=== PATIENT | female | born 1945 | race Caucasian/White ===

== ENCOUNTER 2016-06-19 17:57 | Emergency (ER) | payer OTHER ==
--- NOTE | 2016-06-19 21:12 | ED ORDER SUMMARY ---
..... Patient: KIANA BURT OrderSheet [facility] VisitID: [id number] [address] [place] [place] [address] 71y, F Registration Date/Time: 06/19/2016 ORDER SHEET Weight: 89.3 kg (stated) Allergies: No Known Drug Allergy GENERAL ORDERS: MEDICATION ORDERS: Albuterol Neb w Atrovent 1 unit dose (NOW) (20:17 06/19/2016 Nikki A.R.N.P.) (20:59 Margaret R.N.) IV FLUIDS: ORDER SHEET NOTES: [Electronically signed by Apoorva Carson R.N. (21:22 06/19/2016)] [Electronically signed by Yanelis ReedR.N.PVeronica (21:57 06/19/2016)] [Electronically locked/signed by Apoorva Carson R.N. (21:22 06/19/2016)]
--- NOTE | 2016-06-19 21:12 | ED CLINICAL REPORT ---
Clinical Report - Physicians/Mid Levels [facility] [address] [place] [address] 06/19/2016 17:57 Patient: KIANA BURT Time Seen: 19:50; initial patient contact, initial documentation, patient care assumed. Arrived- By private vehicle. Historian- patient and family. HISTORY OF PRESENT ILLNESS Chief Complaint: COUGH. This started about 2 months ago or more and is still present. The illness is described as mild. The patient has had a cough and mild difficulty breathing . The patient has also had wheezing. She has had scant amounts of thin, clear, yellow, white sputum. No chest discomfort or pain, fever, muscle aches or sore throat. No nasal congestion or discharge, sinus pressure, sinus drainage or ear pain. Additional history - No known contact with a sick individual. Similar symptoms previously: None. Recent medical care: The patient was seen recently in the office. ( has been to dr several times for this, and given several different meds, including abx, steroids, inhalers, chest xray done, next appt is 07/03 and if still coughing her dr said he would give her referral to lung dr). REVIEW OF SYSTEMS No headache, vomiting, diarrhea or abdominal pain. All systems otherwise negative, except as recorded above. PAST HISTORY See nurses notes. PROBLEMS: Sinusitis. Bronchospasm. Dyspnea. Wheezing. Hyperlipidemia. Hypercholesterolemia. Hypertension. Bronchitis. Depression. --19:37 Apoorva Carson RPrimitivo. ADDITIONAL SURGERIES: Appendectomy. Foot surgery. Ovarian cyst surgery. Tonsillectomy. --19:37 Apoorva Carson RPrimitivo. SOCIAL HISTORY Never smoker. Not exposed to second-hand smoke at home. No alcohol use or drug use. No recent travel. Is a local resident. FAMILY HISTORY Negative. ADDITIONAL NOTES The nursing notes have been reviewed with agreement regarding the chief complaint, HPI, ROS, PMH and patient medications and allergies. PHYSICAL EXAM Vital Signs: 06/19/2016 19:32 BP: 153/102. HR: 79. RR: 16. O2 saturation: 99%. Temp: 98.2 F. Have been reviewed as abnormal and appear to be correct. Hypertensive. Heart rate normal. Respiratory rate normal. Temperature normal. Oxygen saturation normal. Appearance: Alert. No acute distress. Eyes: Pupils equal, round and reactive to light. Eyes normal inspection. ENT: Ears normal. Nose normal. Pharynx normal. Uvula midline. Neck: Normal inspection. Neck supple. CVS: Normal heart rate and rhythm. Heart sounds normal. Pulses normal. Respiratory: No respiratory distress. Breath sounds abnormal. Inspiratory mild bilateral wheezes posteriorly and in the bases. Abdomen: Soft and nontender. No organomegaly. Back: Normal inspection. Skin: Skin warm and dry. Normal skin color. No rash. Normal skin turgor. Extremities: Extremities exhibit normal ROM. No lower extremity edema. Neuro: Oriented X 3. No motor deficit. No sensory deficit. PROGRESS AND PROCEDURES Course of Care: 2100. resp even and unlabored, B breath sounds CTA. 06/19/2016 20:59 BP: 153/80. HR: 79. RR: 18. O2 saturation: 98%. Vital Signs: have been reviewed as normal and appear to be correct. Patient and family counseled in person regarding the patient's stable condition and diagnosis. 21:11. Differential Diagnosis: Other possible considerations: chronic cough, pneumonia, bronchitis, copd, emphysema, allergies, gerd, lung ca. Above considerations are based on history and physical exam. Differential diagnosis was discussed with patient. Disposition: Discharged home in good and improved condition (21:12). Condition: good and stable. CLINICAL IMPRESSION Acute bronchospasm INSTRUCTIONS Warnings: GENERAL WARNINGS: Return or contact your physician immediately if your condition worsens or changes unexpectedly, if not improving as expected, or if other problems arise. Specifically return if problem worsens. Follow-up: Screening today revealed the patient's blood pressure to be in the hypertensive range. Blood pressure screening was not performed during this visit because blood pressure screening was precluded by clinical urgency. Understanding of the discharge instructions verbalized by patient. Follow-up with: Edenilson Golden MD, Pulmonary Disease, , [address] , [place], [id number] Follow up in about three days even if well. Call for an appointment. Summary of care provided to patient and family. (Electronically signed by Yanelis Reed A.R.N.P. 06/19/2016 21:57)
--- NOTE | 2016-06-19 21:12 | ED NURSING NOTES ---
Clinical Report - Nurses [facility] [address] [place] [address] 06/19/2016 17:57 Patient: KIANA BURT TRIAGE Triage time 19:32. Acuity: LEVEL 4. Chief Complaint: COUGH. Alert. No acute distress. ( Pt. has had an URI for over 2 months. She has been treated multiple times by her PCP with a neb tx and antibiotics. She currently is on an antibiotic but she does not recall which one. She is worried because she is not getting better.). SEPSIS SCREEN: Sepsis Screen. Negative (no infection suspected/documented). LISSET COMA SCORE: Lisset Coma Scale: 15- eyes open spontaneously (4); best verbal response- oriented x 4 (5); best motor response- obeys commands (6). --19:37 Apoorva Carson R.N. 19:32 06/19/16. BP: 153/102. HR: 79. RR: 16. O2 saturation: 99%. Temp: 98.2 F. Pain level now 0/10. --19:37 Apoorva Carson R.N. Weight: 89.3 kg stated. Height/Length: 66 inches Per Patient. BMI: 31.8. --19:34 Apoorva Carson R.N. Medications Aspirin Low Dose Oral. Atrovent HFA Inhalation. CEFPOD. Cefpodoxime Proxetil Oral. Escitalopram Oxalate Oral. Estradiol Oral. Flovent HFA Inhalation. Hydrochlorothiazide Oral. Krill Oil Oral. Losartan Potassium Oral. MedroxyPROGESTERone Acetate Oral. --19:36 Apoorva Carson R.N. Metoprolol Tartrate Oral. Multiple Vitamins Oral. Simvastatin Oral. --19:36 Apoorva Carson R.N. Allergies No Known Drug Allergy. --19:36 Apoorva Carson R.N. History Arrived by private vehicle. Historian: patient. Accompanied by (ficarolina). Primary physician (Dr. Dennison). Onset. (2 months ago. Pt is concerned because she is not getting any better). Treatment LASER MACHINE OPERATOR: (Neb treatment around 1600). PAST MEDICAL HX: Immunizations: status is unknown. SOCIAL HX: Never smoker. No alcohol use or drug use. She has not traveled outside the [place] No infectious disease exposure. ABUSE ASSESSMENT: Abuse assessment: The patient was asked "Do you feel safe in your home?" and "Has anyone hurt you or threatened to hurt you?". No report of abuse. SELF HARM ASSESSMENT: A self harm assessment was performed. The patient answered "no" to the question "Do you have thoughts of harming or killing yourself?" and "Have you recently had thoughts about harming or killing others?". NUTRITIONAL RISK ASSESSMENT: The nutritional risk assessment revealed no deficiencies. FUNCTIONAL ASSESSMENT: Functional assessment: no impairments noted. LEARNING NEEDS ASSESSMENT: The learning needs assessment revealed no barriers. --19:37 Apoorva Carson R.N. PROBLEMS: Sinusitis. Bronchospasm. Dyspnea. Wheezing. Hyperlipidemia. Hypercholesterolemia. Hypertension. Bronchitis. Depression. --19:37 Apoorva Carson R.N. ADDITIONAL SURGERIES: Appendectomy. Foot surgery. Ovarian cyst surgery. Tonsillectomy. --19:37 Apoorva Carson R.N. Interventions ID band on patient. Ambulatory. --19:37 Apoorva Carson R.N. PHYSICAL ASSESSMENT Ambulatory to room. GENERAL / NEURO / PSYCH: Alert. Appears in no acute distress. HEENT: Mucous membranes are pink. RESPIRATORY: Respirations not labored. CVS: Capillary refill less than 2 seconds. SKIN: Skin is warm and dry. --19:37 Apoorva Carson R.N. NURSING PROGRESS NOTES Patient gowned. Head of bed elevated. Two patient identifiers checked. Call light placed in reach. Side rails up x 2. Bed placed in lowest position. Brakes of bed on. Patient ready for evaluation- chart flagged. --19:37 Apoorva Carson R.N. 20:30 06/19/2016 ALBUTEROL NEB W ATROVENT Neb TX 1 unit dose given. Given by the respiratory therapist. Allergies verified and confirmed 5 rights. --20:59 Apoorva Carson R.N. Patient informed about reason for wait. --21:00 Apoorva Carson R.N. 20:59 06/19/16. BP: 153/80. HR: 79. RR: 18. O2 saturation: 98%. --21:00 Apoorva Carson R.N. DISPOSITION / DISCHARGE 21:15. Departure time: 2114. ( 20:59 06/19/16. BP: 153/80. HR: 79. RR: 18. O2 saturation: 98%. --21:00 Apoorva Carson R.N. Pt. states she is feeling a lot better.). No learning barriers present. Discharge instructions provided and reviewed with the patient. Reviewed referral to a roll plugger machine operator for followup. Patient and laser technician verbalized understanding. Written instructions provided in Brazilian. The patient was discharged home and accompanied by laser technician. She left the Emergency Department ambulatory and via private vehicle. Developmental Mathematics Instructor driving. Medication list reviewed and validated. --21:21 Apoorva Carson R.N. 21:15 06/19/16. RR: 18. Additional comments: d/c v/s deferred pt. v/s done at 20:59 and stable. --21:21 Apoorva Carson R.N. Locked/Released at 06/19/2016 21:22 by Apoorva Carson R.N.
--- NOTE | 2016-06-19 21:12 | ED NURSING NOTES ---
Clinical Report - Nurses [facility] [address] [place] [address] 06/19/2016 17:57 Patient: KIANA BURT TRIAGE Triage time 19:32. Acuity: LEVEL 4. Chief Complaint: COUGH. Alert. No acute distress. ( Pt. has had an URI for over 2 months. She has been treated multiple times by her PCP with a neb tx and antibiotics. She currently is on an antibiotic but she does not recall which one. She is worried because she is not getting better.). SEPSIS SCREEN: Sepsis Screen. Negative (no infection suspected/documented). LISSET COMA SCORE: Lisset Coma Scale: 15- eyes open spontaneously (4); best verbal response- oriented x 4 (5); best motor response- obeys commands (6). --19:37 Apoorva Carson R.N. 19:32 06/19/16. BP: 153/102. HR: 79. RR: 16. O2 saturation: 99%. Temp: 98.2 F. Pain level now 0/10. --19:37 Apoorva Carson R.N. Weight: 89.3 kg stated. Height/Length: 66 inches Per Patient. BMI: 31.8. --19:34 Apoorva Carson R.N. Medications Aspirin Low Dose Oral. Atrovent HFA Inhalation. CEFPOD. Cefpodoxime Proxetil Oral. Escitalopram Oxalate Oral. Estradiol Oral. Flovent HFA Inhalation. Hydrochlorothiazide Oral. Krill Oil Oral. Losartan Potassium Oral. MedroxyPROGESTERone Acetate Oral. --19:36 Apoorva Carson R.N. Metoprolol Tartrate Oral. Multiple Vitamins Oral. Simvastatin Oral. --19:36 Apoorva Carson R.N. Allergies No Known Drug Allergy. --19:36 Apoorva Carson R.N. History Arrived by private vehicle. Historian: patient. Accompanied by (ficarolina). Primary physician (Dr. Dennison). Onset. (2 months ago. Pt is concerned because she is not getting any better). Treatment SORT WORKER: (Neb treatment around 1600). PAST MEDICAL HX: Immunizations: status is unknown. SOCIAL HX: Never smoker. No alcohol use or drug use. She has not traveled outside the [place] No infectious disease exposure. ABUSE ASSESSMENT: Abuse assessment: The patient was asked "Do you feel safe in your home?" and "Has anyone hurt you or threatened to hurt you?". No report of abuse. SELF HARM ASSESSMENT: A self harm assessment was performed. The patient answered "no" to the question "Do you have thoughts of harming or killing yourself?" and "Have you recently had thoughts about harming or killing others?". NUTRITIONAL RISK ASSESSMENT: The nutritional risk assessment revealed no deficiencies. FUNCTIONAL ASSESSMENT: Functional assessment: no impairments noted. LEARNING NEEDS ASSESSMENT: The learning needs assessment revealed no barriers. --19:37 Apoorva Carson R.N. PROBLEMS: Sinusitis. Bronchospasm. Dyspnea. Wheezing. Hyperlipidemia. Hypercholesterolemia. Hypertension. Bronchitis. Depression. --19:37 Apoorva Carson R.N. ADDITIONAL SURGERIES: Appendectomy. Foot surgery. Ovarian cyst surgery. Tonsillectomy. --19:37 Apoorva Carson R.N. Interventions ID band on patient. Ambulatory. --19:37 Apoorva Carson R.N. PHYSICAL ASSESSMENT Ambulatory to room. GENERAL / NEURO / PSYCH: Alert. Appears in no acute distress. HEENT: Mucous membranes are pink. RESPIRATORY: Respirations not labored. CVS: Capillary refill less than 2 seconds. SKIN: Skin is warm and dry. --19:37 Apoorva Carson R.N. NURSING PROGRESS NOTES Patient gowned. Head of bed elevated. Two patient identifiers checked. Call light placed in reach. Side rails up x 2. Bed placed in lowest position. Brakes of bed on. Patient ready for evaluation- chart flagged. --19:37 Apoorva Carson R.N. 20:30 06/19/2016 ALBUTEROL NEB W ATROVENT Neb TX 1 unit dose given. Given by the respiratory therapist. Allergies verified and confirmed 5 rights. --20:59 Apoorva Carson R.N. Patient informed about reason for wait. --21:00 Apoorva Carson R.N. 20:59 06/19/16. BP: 153/80. HR: 79. RR: 18. O2 saturation: 98%. --21:00 Apoorva Carson R.N. DISPOSITION / DISCHARGE 21:15. Departure time: 2114. ( 20:59 06/19/16. BP: 153/80. HR: 79. RR: 18. O2 saturation: 98%. --21:00 Apoorva Carson R.N. Pt. states she is feeling a lot better.). No learning barriers present. Discharge instructions provided and reviewed with the patient. Reviewed referral to a dining room host/hostess for followup. Patient and disc jockey verbalized understanding. Written instructions provided in Serbian. The patient was discharged home and accompanied by disc jockey. She left the Emergency Department ambulatory and via private vehicle. Bull Rider driving. Medication list reviewed and validated. --21:21 Apoorva Carson R.N. 21:15 06/19/16. RR: 18. Additional comments: d/c v/s deferred pt. v/s done at 20:59 and stable. --21:21 Apoorva Carson R.N. Locked/Released at 06/19/2016 21:22 by Apoorva Carson R.N.
--- NOTE | 2016-06-19 21:12 | ED ORDER SUMMARY ---
..... Patient: KIANA BURT OrderSheet [facility] VisitID: [id number] [address] [place] [address] 71y, F Registration Date/Time: 06/19/2016 ORDER SHEET Weight: 89.3 kg (stated) Allergies: No Known Drug Allergy GENERAL ORDERS: MEDICATION ORDERS: Albuterol Neb w Atrovent 1 unit dose (NOW) (20:17 06/19/2016 Nikki A.R.N.P.) (20:59 Margaret R.N.) IV FLUIDS: ORDER SHEET NOTES: [Electronically signed by Apoorva Carson R.N. (21:22 06/19/2016)] [Electronically signed by Yanelis ReedR.N.PVeronica (21:57 06/19/2016)] [Electronically locked/signed by Apoorva Carson R.N. (21:22 06/19/2016)]
--- NOTE | 2016-06-19 21:12 | ED CLINICAL REPORT ---
Clinical Report - Physicians/Mid Levels [facility] [address] [place] [address] 06/19/2016 17:57 Patient: KIANA BURT Time Seen: 19:50; initial patient contact, initial documentation, patient care assumed. Arrived- By private vehicle. Historian- patient and family. HISTORY OF PRESENT ILLNESS Chief Complaint: COUGH. This started about 2 months ago or more and is still present. The illness is described as mild. The patient has had a cough and mild difficulty breathing . The patient has also had wheezing. She has had scant amounts of thin, clear, yellow, white sputum. No chest discomfort or pain, fever, muscle aches or sore throat. No nasal congestion or discharge, sinus pressure, sinus drainage or ear pain. Additional history - No known contact with a sick individual. Similar symptoms previously: None. Recent medical care: The patient was seen recently in the office. ( has been to dr several times for this, and given several different meds, including abx, steroids, inhalers, chest xray done, next appt is 07/03 and if still coughing her dr said he would give her referral to lung dr). REVIEW OF SYSTEMS No headache, vomiting, diarrhea or abdominal pain. All systems otherwise negative, except as recorded above. PAST HISTORY See nurses notes. PROBLEMS: Sinusitis. Bronchospasm. Dyspnea. Wheezing. Hyperlipidemia. Hypercholesterolemia. Hypertension. Bronchitis. Depression. --19:37 Apoorva Carson RPrimitivo. ADDITIONAL SURGERIES: Appendectomy. Foot surgery. Ovarian cyst surgery. Tonsillectomy. --19:37 Apoorva Carson RPrimitivo. SOCIAL HISTORY Never smoker. Not exposed to second-hand smoke at home. No alcohol use or drug use. No recent travel. Is a local resident. FAMILY HISTORY Negative. ADDITIONAL NOTES The nursing notes have been reviewed with agreement regarding the chief complaint, HPI, ROS, PMH and patient medications and allergies. PHYSICAL EXAM Vital Signs: 06/19/2016 19:32 BP: 153/102. HR: 79. RR: 16. O2 saturation: 99%. Temp: 98.2 F. Have been reviewed as abnormal and appear to be correct. Hypertensive. Heart rate normal. Respiratory rate normal. Temperature normal. Oxygen saturation normal. Appearance: Alert. No acute distress. Eyes: Pupils equal, round and reactive to light. Eyes normal inspection. ENT: Ears normal. Nose normal. Pharynx normal. Uvula midline. Neck: Normal inspection. Neck supple. CVS: Normal heart rate and rhythm. Heart sounds normal. Pulses normal. Respiratory: No respiratory distress. Breath sounds abnormal. Inspiratory mild bilateral wheezes posteriorly and in the bases. Abdomen: Soft and nontender. No organomegaly. Back: Normal inspection. Skin: Skin warm and dry. Normal skin color. No rash. Normal skin turgor. Extremities: Extremities exhibit normal ROM. No lower extremity edema. Neuro: Oriented X 3. No motor deficit. No sensory deficit. PROGRESS AND PROCEDURES Course of Care: 2100. resp even and unlabored, B breath sounds CTA. 06/19/2016 20:59 BP: 153/80. HR: 79. RR: 18. O2 saturation: 98%. Vital Signs: have been reviewed as normal and appear to be correct. Patient and family counseled in person regarding the patient's stable condition and diagnosis. 21:11. Differential Diagnosis: Other possible considerations: chronic cough, pneumonia, bronchitis, copd, emphysema, allergies, gerd, lung ca. Above considerations are based on history and physical exam. Differential diagnosis was discussed with patient. Disposition: Discharged home in good and improved condition (21:12). Condition: good and stable. CLINICAL IMPRESSION Acute bronchospasm INSTRUCTIONS Warnings: GENERAL WARNINGS: Return or contact your physician immediately if your condition worsens or changes unexpectedly, if not improving as expected, or if other problems arise. Specifically return if problem worsens. Follow-up: Screening today revealed the patient's blood pressure to be in the hypertensive range. Blood pressure screening was not performed during this visit because blood pressure screening was precluded by clinical urgency. Understanding of the discharge instructions verbalized by patient. Follow-up with: Edenilson Golden MD, Pulmonary Disease, , [address] , [place], [id number] Follow up in about three days even if well. Call for an appointment. Summary of care provided to patient and family. (Electronically signed by Yanelis Reed A.R.N.P. 06/19/2016 21:57)
--- NOTE | 2016-06-19 21:57 | ED DISCHARGE INSTRUCTIONS ---
Patient: KIANA BURT General Instructions [facility] VisitID: [id number] [address] [place] [address] 71y, F Registration Date/Time: 06/19/2016 Acute bronchospasm INSTRUCTIONS Warnings: GENERAL WARNINGS: Return or contact your physician immediately if your condition worsens or changes unexpectedly, if not improving as expected, or if other problems arise. Specifically return if problem worsens. Follow-up: Screening today revealed the patient's blood pressure to be in the hypertensive range. Blood pressure screening was not performed during this visit because blood pressure screening was precluded by clinical urgency. Understanding of the discharge instructions verbalized by patient. Follow-up with: Edenilson Golden MD, Pulmonary Disease, , [address] , [place], [phone] Follow up in about three days even if well. Call for an appointment. Summary of care provided to patient and family. ADDITIONAL INFORMATION Bronchospasm (Adult) Bronchospasm occurs when the airways (bronchial tubes) go into spasm and contract. This makes it hard to breathe and causes wheezing (a high-pitched whistling sound). Bronchospasm can also cause frequent coughing without the wheezing sound. Bronchospasm is due to irritation, inflammation or allergic reaction of the airways. People with asthma get bronchospasm. However, not everyone with bronchospasm has asthma. Being exposed to harmful fumes, a recent case of bronchitis, or a flare-up of chronic emphysema (COPD) may cause the airways to spasm. An episode of bronchospasm may last 7-14 days. Medicine may be prescribed to relax the airways and prevent wheezing. Antibiotics will be prescribed only if your doctor thinks there is a bacterial infection. Antibiotics do not help a viral infection. Home Care: Drink lots of water or other fluids (at least 10 glasses a day) during an attack. This will loosen lung secretions and make it easier to breathe. If you have heart or kidney disease, check with your doctor before you drink extra amounts of fluids. Take prescribed medicine exactly at the times advised. If you have a hand-held inhaler or aerosol breathing medicine, do not use it more than once every four hours, unless told to do so. If prescribed an antibiotic or prednisone, take all of the medicine even if you are feeling better after a few days. Do not smoke. Avoid being exposed to the smoke of others. If you were given an inhaler, use it exactly as directed. If you need to use it more often than prescribed, your condition may be getting worse. Contact your doctor or this facility. Follow Up With Your Doctor, Or As Directed. [ NOTE: If you are age 65 or older, or if you have chronic asthma or COPD, we recommend a PNEUMOCOCCAL VACCINATION every five years and a yearly INFLUENZA VACCINATION (FLU-SHOT) every . Ask your doctor about this.] Get Prompt Medical Attention If Any Of The Following Occur: Increased wheezing or shortness of breath Need to use your inhalers more often than usual without relief Fever of 100.4F (38C) or higher, or as directed by your healthcare provider Coughing up lots of dark-colored or bloody sputum (mucus) Chest pain with each breath You do not start to improve within 24 hours You have been given the following additional information: Bronchospasm (Adult) (Electronically signed by Yanelis Reed A.R.N.P. 06/19/2016 21:57)
--- NOTE | 2016-06-19 21:57 | ED DISCHARGE INSTRUCTIONS ---
Patient: KIANA BURT General Instructions [facility] VisitID: [id number] [address] [place] [address] 71y, F Registration Date/Time: 06/19/2016 Acute bronchospasm INSTRUCTIONS Warnings: GENERAL WARNINGS: Return or contact your physician immediately if your condition worsens or changes unexpectedly, if not improving as expected, or if other problems arise. Specifically return if problem worsens. Follow-up: Screening today revealed the patient's blood pressure to be in the hypertensive range. Blood pressure screening was not performed during this visit because blood pressure screening was precluded by clinical urgency. Understanding of the discharge instructions verbalized by patient. Follow-up with: Edenilson Golden MD, Pulmonary Disease, , [address] , [place], [id number] Follow up in about three days even if well. Call for an appointment. Summary of care provided to patient and family. ADDITIONAL INFORMATION Bronchospasm (Adult) Bronchospasm occurs when the airways (bronchial tubes) go into spasm and contract. This makes it hard to breathe and causes wheezing (a high-pitched whistling sound). Bronchospasm can also cause frequent coughing without the wheezing sound. Bronchospasm is due to irritation, inflammation or allergic reaction of the airways. People with asthma get bronchospasm. However, not everyone with bronchospasm has asthma. Being exposed to harmful fumes, a recent case of bronchitis, or a flare-up of chronic emphysema (COPD) may cause the airways to spasm. An episode of bronchospasm may last 7-14 days. Medicine may be prescribed to relax the airways and prevent wheezing. Antibiotics will be prescribed only if your doctor thinks there is a bacterial infection. Antibiotics do not help a viral infection. Home Care: Drink lots of water or other fluids (at least 10 glasses a day) during an attack. This will loosen lung secretions and make it easier to breathe. If you have heart or kidney disease, check with your doctor before you drink extra amounts of fluids. Take prescribed medicine exactly at the times advised. If you have a hand-held inhaler or aerosol breathing medicine, do not use it more than once every four hours, unless told to do so. If prescribed an antibiotic or prednisone, take all of the medicine even if you are feeling better after a few days. Do not smoke. Avoid being exposed to the smoke of others. If you were given an inhaler, use it exactly as directed. If you need to use it more often than prescribed, your condition may be getting worse. Contact your doctor or this facility. Follow Up With Your Doctor, Or As Directed. [ NOTE: If you are age 65 or older, or if you have chronic asthma or COPD, we recommend a PNEUMOCOCCAL VACCINATION every five years and a yearly INFLUENZA VACCINATION (FLU-SHOT) every . Ask your doctor about this.] Get Prompt Medical Attention If Any Of The Following Occur: Increased wheezing or shortness of breath Need to use your inhalers more often than usual without relief Fever of 100.4F (38C) or higher, or as directed by your healthcare provider Coughing up lots of dark-colored or bloody sputum (mucus) Chest pain with each breath You do not start to improve within 24 hours You have been given the following additional information: Bronchospasm (Adult) (Electronically signed by Yanelis Reed A.R.N.P. 06/19/2016 21:57)
--- NOTE | 2016-06-19 21:58 | ED MED RECONCILIATION SUMMARY ---
Patient: KIANA BURT Medication Reconciliation Report [facility] VisitID: [id number] [address] [place] [address] 71y, F Registration Date/Time: 06/19/2016 Weight: 89.3 kg Height/Length: 66 in. BMI: 31.8 ALLERGIES: No Known Drug Allergy The patient's Home Medications are listed below: THE FOLLOWING MEDICATIONS NEED TO BE RECONCILED: Aspirin Low Dose Oral Atrovent HFA Inhalation CEFPOD Cefpodoxime Proxetil Oral Escitalopram Oxalate Oral Estradiol Oral Flovent HFA Inhalation Hydrochlorothiazide Oral Krill Oil Oral Losartan Potassium Oral MedroxyPROGESTERone Acetate Oral Metoprolol Tartrate Oral Multiple Vitamins Oral Simvastatin Oral The source(s) of the original Home Medication information: Not obtained. The following Medications were given to the patient in the Emergency Department: ALBUTEROL NEB W ATROVENT Neb [place] 1 unit dose, administered: 06/19/2016 8:30:00 PM The following Medications were prescribed to the patient: None.
--- NOTE | 2016-06-19 21:58 | ED MAR SUMMARY ---
..... Medication Administration Record [facility] [address] [place] [address] Patient: KIANA BURT Visit ID: [id number] 71y, F Weight: 89.3 kg Height/Length: 66 in BMI: 31.8 ALLERGIES: No Known Drug Allergy Given 20:30 06/19/2016 Apoorva Carson R.N. Medication Administered: ALBUTEROL NEB W ATROVENT, Dose: 1 unit dose Janae [place]. Medication Ordered: Albuterol Neb w Atrovent 1 unit dose (NOW).
--- NOTE | 2016-06-19 21:58 | ED MED RECONCILIATION SUMMARY ---
Patient: KIANA BURT Medication Reconciliation Report [facility] VisitID: [id number] [address] [place] [address] 71y, F Registration Date/Time: 06/19/2016 Weight: 89.3 kg Height/Length: 66 in. BMI: 31.8 ALLERGIES: No Known Drug Allergy The patient's Home Medications are listed below: THE FOLLOWING MEDICATIONS NEED TO BE RECONCILED: Aspirin Low Dose Oral Atrovent HFA Inhalation CEFPOD Cefpodoxime Proxetil Oral Escitalopram Oxalate Oral Estradiol Oral Flovent HFA Inhalation Hydrochlorothiazide Oral Krill Oil Oral Losartan Potassium Oral MedroxyPROGESTERone Acetate Oral Metoprolol Tartrate Oral Multiple Vitamins Oral Simvastatin Oral The source(s) of the original Home Medication information: Not obtained. The following Medications were given to the patient in the Emergency Department: ALBUTEROL NEB W ATROVENT Neb [place] 1 unit dose, administered: 06/19/2016 8:30:00 PM The following Medications were prescribed to the patient: None.
--- NOTE | 2016-06-19 21:58 | ED MAR SUMMARY ---
..... Medication Administration Record [facility] [address] [place] [address] Patient: KIANA BURT Visit ID: [id number] 71y, F Weight: 89.3 kg Height/Length: 66 in BMI: 31.8 ALLERGIES: No Known Drug Allergy Given 20:30 06/19/2016 Apoorva Carson R.N. Medication Administered: ALBUTEROL NEB W ATROVENT, Dose: 1 unit dose Janae [place]. Medication Ordered: Albuterol Neb w Atrovent 1 unit dose (NOW).
== END 2016-06-19 21:15 | disposition home or self-care (01) ==
LOC: ED SRH 17:57
DX: J98.01 Acute bronchospasm (principal); I10 Essential (primary) hypertension; E78.5 Hyperlipidemia, unspecified; E78.00 Pure hypercholesterolemia, unspecified